=== PATIENT | male | born 1990 | race Caucasian/White ===

== ENCOUNTER 2021-07-04 22:02 | Emergency (ER) | payer OTHER ==
[~2021-07-04] VITALS: Ht 185.4 cm; Wt 136.1 kg
[2021-07-04 23:13] LABS: AMPHETAMINES SCREEN,URINE NEGATIVE (NEGATIVE); BENZODIAZEPINES SCREEN,URINE NEGATIVE (NEGATIVE); PHENCYCLIDINE SCREEN,URINE NEGATIVE (NEGATIVE)
[2021-07-04 23:29] VITALS: BP 126/83
== END 2021-07-04 23:31 | disposition home or self-care (01) ==
LOC: ER 22:19
DX: R00.2 Palpitations (principal); R94.31 Abnormal electrocardiogram [ECG] [EKG]; Z86.16 Personal history of COVID-19
CPT/HCPCS: 71045; 80307; 93005; 99283